=== PATIENT | female | born 1980 | race Caucasian/White ===

== ENCOUNTER 2017-12-09 15:26 | Emergency (ER) | payer OTHER ==
[~2017-12-09] VITALS: Ht 165.1 cm; Wt 59.0 kg
[~2017-12-09 15:26] MED LIST: VENLAFAXINE HYD75 M1 PO
--- NOTE | 2017-12-09 15:39 | ED GENERAL ADULT ---
History of Present Illness General Chief Complaint: General Adult Stated Complaint: TACHY Source: patient Exam Limitations: no limitations Vital Signs & Intake/Output Vital Signs & Intake/Output Vital Signs Date Time Temp Pulse Resp B/P B/P Pulse O2 O2 Flow FiO2 Mean Ox Delivery Rate 12/096 98.6 97 18 123/77 99 Room Air 12/09 2211 92 18 98 Room Air 12/09 2030 103 12/09 1900 98.1 125 16 142/76 99 Room Air 12/09 1539 98.3 120 20 150/86 100 12/09 1535 96 ED Intake and Output 12/10 0000 12/09 1200 Intake Total 0 Output Total Balance 0 Intake, Oral 0 Patient 130 lb Weight Weight Reported by Patient Measurement Method Allergies Coded Allergies: NO KNOWN ALLERGIES (01/24/11) Reconcile Medications VENLAFAXINE HCL (Venlafaxine HCl ER) 75 MG CAP.ER.24H 1 CAP PO DAILY MENTAL HEALTH (Reported) Triage Note: PT ANNE FROM OFFICE. PT WENT TO SEE HER DRNathan TO BE SURE SHE DID NOT HAVE THE FLU AND WHILE IN THE OFFICE WAS FOUND TO HAVE A RAPID HEART RATE. OFFICE STAFF CALLED FOR AMBULANCE TO BRING TO ED. PT DENIES CHEST PAIN STATES SHE DOES HAVE SOME CHEST CONGETION. Triage Nurses Notes Reviewed? yes Onset: Abrupt Duration: hour(s): Timing: recent history : No Patient currently breastfeeds: No HPI: 12/09/17 8:40 PM 29-year-old female presents to the emergency department for palpitations. The patient states she was in her usual state of health until earlier today when she felt her heart racing. She denies any chest pain or shortness of breath. She denies any significant past medical history. She says she did drink lots of coffee. Rhythm strip revealed sinus tachycardia. EKG reveals sinus tachycardia with right atrial abnormality. Past History Travel History Traveled to [place] past 21 day No Medical History Any Pertinent Medical History? see below for history Psychiatric: anxiety Surgical History Surgical History: none Psychosocial History What is your primary language Micronesian Tobacco Use: Never used ETOH Use: occasional use Illicit Drug Use: denies illicit drug use Family History Hx Contributory? No Review of Systems Review of Systems Constitutional: Denies: fever. EENTM: Denies: visual changes. Respiratory: Denies: short of breath. Cardiovascular: Reports: palpitations. Denies: chest pain. GI: Denies: abdominal pain. Genitourinary: Reports: no symptoms. Musculoskeletal: Reports: no symptoms. Skin: Denies: rash. Neurological/Psychological: Reports: no symptoms. Hematologic/Endocrine: Reports: no symptoms. Immunologic/Allergic: Reports: no symptoms. Physical Exam Physical Exam General Appearance: well developed/nourished, alert, awake, anxious Head: atraumatic, normal appearance Eyes: Bilateral: normal appearance, PERRL, EOMI. Ears, Nose, Throat: normal pharynx, normal ENT inspection Neck: normal inspection, supple Respiratory: normal breath sounds, chest non-tender Cardiovascular: tachycardia Peripheral Pulses: 4+ radial (R), 4+ radial (L) Gastrointestinal: non-tender Back: normal range of motion Extremities: normal inspection, normal range of motion Neurologic/Psych: no motor/sensory deficits, awake, alert, oriented x 3 Skin: intact, normal color, warm/dry Core Measures ACS in differential dx? No CVA/TIA Diagnosis: No Sepsis Present: No Sepsis Focused Exam Completed? No Progress Differential Diagnoses I considered the following diagnoses in my evaluation of the patient: [ Hypertension, pulmonary embolism, electrolyte derangement, dehydration, substance abuse, drug withdrawal] Plan of Care: Orders Procedure Date/time Status RAPID VIRAL INFLUENZA A 12/09 2204 Complete URINE DRUG SCREEN FOR ER ONLY 12/09 2056 Complete EKG 12/09 2030 Active TSH REFLEX 12/09 180 Complete TROPONIN LEVEL 12/10 1807 Complete HUMAN BETA HCG SCREEN 12/09 180 Complete D-DIMER 12/09 180 Complete COMPREHENSIVE METABOLIC PANEL 12/10 1807 Complete CBC WITHOUT DIFFERENTIAL 12/10 1807 Complete Laboratory Tests 12/09/17 2105: Urine Opiates Screen < 100, Methadone Screen < 40, Barbiturate Screen < 60, Ur Phencyclidine Scrn < 6.00, Amphetamines Screen < 100, U Benzodiazepines Scrn < 85, Urine Cocaine Screen < 50, Urine Cannabis Screen < 5.00 12/09/17 1853: Anion Gap 15, Estimated GFR > 60, BUN/Creatinine Ratio 18.3, Glucose 104 H, Calcium 9.7, Total Bilirubin 1.1, AST 25, ALT 31, Alkaline Phosphatase 80, Troponin I < 0.01, Total Protein 7.7, Albumin 4.5, Globulin 3.2, Albumin/ Globulin Ratio 1.4, TSH &T3 &Free T4 Intrp 1.370, Total Beta HCG NEGATIVE, D- Dimer High Sensitivty < 200, CBC w Diff NO MAN DIFF REQ, RBC 5.25, MCV 88.6, MCH 29.4, MCHC 33.2, RDW 12.7, MPV 8.3, Gran % 81.4 H, Lymphocytes % 15.3 L, Monocytes % 2.8, Eosinophils % 0.2, Basophils % 0.3, Absolute Granulocytes 7.4 H, Absolute Lymphocytes 1.4, Absolute Monocytes 0.3, Absolute Eosinophils 0, Absolute Basophils 0 Microbiology 12/09 2218 NASOPHARYN: Influenza Virus A & B Rapid Smear - COMP Initial ED EKG: SINUS TACHYCARDIA Departure Departure Disposition: HOME OR SELF CARE Condition: Stable Clinical Impression Primary Impression: Tachycardia Referrals: Madeleine WIN,Jabari Escobedo (PCP/Family) Departure Forms: Customer Survey General Discharge Information Comments 12/09/17 11:30 PM The patient's heart rate came down below 100. She received 2 L of IV fluid and Ativan in the ED. She relates to drinking over 5 cups of coffee today. This is unusual for her. She never had any chest pain. No shortness of breath. D- dimer was negative. Assessment and plan Palpitations Tachycardia-likely secondary to caffeine She will follow-up the aircraft metalsmith this week and return to the emergency department immediately should she develop chest pain or feel worse. Critical Care Note Critical Care Note Critical Care Time: non-applicable
[2017-12-09 19:05] LABS: ABSOLUTE BASOPHIL COUNT 0 /CUMM (0.0-0.2); ABSOLUTE EOSINOPHIL COUNT 0 /CUMM (0.0-0.7); ABSOLUTE GRANULOCYTE CT 7.4 /CUMM (1.4-6.5); ABSOLUTE LYMPH COUNT 1.4 /CUMM (1.2-3.4); ABSOLUTE MONOCYTE COUNT 0.3 /CUMM (0.10-0.60); BASOPHIL % 0.3 % (0.0-2.0); EOSINOPHIL % 0.2 % (0-5); GRANULOCYTE % 81.4 % (42.2-75.2); HEMATOCRIT 46.5 % (37-47); MEAN CORPUSCULAR HGB 29.4 PG (27.0-31.0); MEAN CORPUSCULAR HGB CONC 33.2 G/DL (33.0-37.0); MEAN CORPUSCULAR VOLUME 88.6 FL (81.0-99.0); MEAN PLATELET VOLUME 8.3 FL (7.4-10.4); PLATELET COUNT 323 /CUMM (130-400); RBC DISTRIBUTION WIDTH 12.7 % (11.5-14.5); RED BLOOD CELL CT 5.25 /CUMM (4.20-5.40); WHITE BLOOD CELL COUNT 9.1 /CUMM (4.8-10.8)
[2017-12-10 00:02] VITALS: BP 122/71
== END 2017-12-10 00:03 ==
LOC: ERH 15:26
PROVIDERS: Emergency Medicine
DX: R00.0 Tachycardia, unspecified (principal)
CPT/HCPCS: 80307; 87804; 87804-59; 93005; 93010; 96374